=== PATIENT | female | born 2005 | race Two or more races ===

== ENCOUNTER → 2024-09-29 | Emergency (ER) | payer OTHER ==
[~2024-09-29] VITALS: Ht 152.4 cm; Wt 46.3 kg
[~2024-09-29] MED LIST: 0.9 % SODIUM CHLORIDE 500 ML IV STA; ONDANSETRON HCL 2 MG/ML VIAL IV ONE; ONDANSETRON HCL 2 MG/ML VIAL ONE
[2024-09-29 15:35] LABS: HEMATOCRIT 39.8 % (36.0-45.00); HEMOGLOBIN 13.6 g/dL (12.0-15.00); MEAN CORPUSCULAR HEMOGLOBIN 28.6 pg (27.00-32.0); MEAN CORPUSCULAR HGB CONC 34.1 g/dl (32.0-36.0); PLATELET COUNT 240 K/uL (150-450); RED BLOOD COUNT 4.74 M/uL (4.00-6.00); RED CELL DISTRIBUTION WIDTH 14.8 % (11.5-14.5)
[2024-09-29 15:45] LABS: CALCIUM 8.4 mg/dL (8.5-10.1); CREATININE SERUM 0.73 mg/dL (0.55-1.02); GFR 100.64; POTASSIUM 3.32 mEq/L (3.5-5.1)
== END | disposition home or self-care (01) ==
LOC: ER 13:24
PROVIDERS: General Practice
DX: R19.7 Diarrhea, unspecified (principal); Z20.822 Contact with and (suspected) exposure to COVID-19